=== PATIENT | female | born 1960 | race Caucasian/White ===

== ENCOUNTER 2017-11-06 07:26 | Outpatient (CLI) | payer OTHER ==
[2016-06-30 05:33] VITALS: O2SAT 93
== END 2017-11-06 07:27 | disposition home or self-care (01) ==
LOC: CONVCARE 07:26
PROVIDERS: ATTEND Orthopaedic Surgery
DX: Z47.1 Aftercare following joint replacement surgery (principal); Z96.653 Presence of artificial knee joint, bilateral; M17.0 Bilateral primary osteoarthritis of knee
CPT/HCPCS: 73560; 73562

== ENCOUNTER 2018-02-05 11:35 | Outpatient (CLI) | payer OTHER ==
[2016-06-30 05:33] VITALS: O2SAT 93
== END 2018-02-05 11:36 | disposition home or self-care (01) ==
LOC: CONVCARE 11:35
PROVIDERS: ATTEND Orthopaedic Surgery
DX: Z47.1 Aftercare following joint replacement surgery (principal); Z96.652 Presence of left artificial knee joint
CPT/HCPCS: 73562

== ENCOUNTER 2018-03-19 12:12 | Outpatient (CLI) | payer OTHER ==
[2016-06-30 05:33] VITALS: O2SAT 93
== END 2018-03-19 12:13 | disposition home or self-care (01) ==
LOC: CONVCARE 12:12
PROVIDERS: ATTEND Orthopaedic Surgery
DX: S62.522D Displaced fracture of distal phalanx of left thumb, subsequent encounter for fracture with routine healing (principal)
CPT/HCPCS: 73140

== ENCOUNTER 2018-06-04 08:47 | Outpatient (CLI) | payer OTHER ==
[2016-06-30 05:33] VITALS: O2SAT 93
== END 2018-06-04 08:48 | disposition home or self-care (01) ==
LOC: CONVCARE 08:47
PROVIDERS: ATTEND Orthopaedic Surgery
DX: S62.522D Displaced fracture of distal phalanx of left thumb, subsequent encounter for fracture with routine healing (principal); Z51.89 Encounter for other specified aftercare
CPT/HCPCS: 73140

== ENCOUNTER 2018-10-08 18:28 | Emergency (ER) | payer OTHER ==
[2018-10-08 18:49] VITALS: RESP 18; TEMP 98.7
[2018-10-08 19:01] LABS: BASOPHILS % (AUTO) 1 % (0-3); EOSINOPHILS % (AUTO) 3 % (0-9); HEMATOCRIT 49 % (35-47); HEMOGLOBIN 15.8 gm/dl (12.0-15.5); LYMPHOCYTES % (AUTO) 23.9 % (10-50); MEAN CORPUSCULAR HEMOGLOBIN 28.2 pg (27.0-32.0); MEAN CORPUSCULAR HGB CONC 31.9 gm/dl (32.0-36.0); MEAN CORPUSCULAR VOLUME 89 fL (81-99); MONOCYTES % (AUTO) 4.9 % (0-12); NEUTROPHILS % (AUTO) 67.7 % (37-80)
[2018-10-08] MEDS ORDERED: PREDNISONE 20 MG TAB PO ONE (19:54)
[2018-10-08] MEDS ORDERED: PREDNISONE 20 MG TAB ONE (20:01)
[2018-10-08] MEDS ORDERED: METOPROLOL TARTRATE 50 MG TAB PO ONE (20:03)
[2018-10-08 20:54] VITALS: BP 141/114; PULSE 81; O2SAT 93
== END 2018-10-08 20:23 | disposition home or self-care (01) ==
LOC: ED 18:28
DX: D69.6 Thrombocytopenia, unspecified (principal)
CPT/HCPCS: 36415; 85025; 99282; 99283; A9270-GY